=== PATIENT | male | born 1955 | race Caucasian/White ===

== ENCOUNTER → 2022-06-04 | Outpatient (CLI) | payer MEDICARE, MEDICAID ==
--- NOTE | 2022-06-04 17:26 | Diagnostic Imaging Report ---
INDICATION: Injury to right hand. AP, oblique, and lateral views of the right hand are obtained. No fracture or acute bony abnormality seen. Joint spaces appear unremarkable. IMPRESSION: Negative right hand. Dictated by: Dictated on workstation # [id number]
== END ==
LOC: RAD FS 09:07
PROVIDERS: ATTEND Nurse Practitioner
DX: S69.91XA Unspecified injury of right wrist, hand and finger(s), initial encounter (principal); X58.XXXA Exposure to other specified factors, initial encounter
CPT/HCPCS: 73130